=== PATIENT | female | born 1965 | race Caucasian/White ===

== ENCOUNTER 2017-04-23 08:28 | Day surgery (SDC) | payer BC ==
[~2017-04-23 08:28] MED LIST: ACETAMINOPHEN 1,000 MG/100 ML BTL IV ONE
[2017-04-23] MEDS ORDERED: BUPIVACAINE 0.75% W/EPI MPF 30ML VIAL IVP ONE (08:29)
[2017-04-23] MEDS ORDERED: FENTANYL PF 100MCG/2ML VIAL IV ONE (08:29)
[2017-04-23] MEDS ORDERED: SEVOFLURANE 250 ML INH ONE (08:29)
[2017-04-23] MEDS ORDERED: METHYLPREDNISOLONE 40MG/VIAL IM ONE (08:29)
[2017-04-23] MEDS ORDERED: PROPOFOL 10 MG/ML VIAL IV ONE (08:29)
[2017-04-23] MEDS ORDERED: ONDANSETRON HCL IV 4 MG/2 ML VIAL IVP ONE (08:29)
[2017-04-23] MEDS ORDERED: KETOROLAC 30 MG/ML VIAL IVP ONE (08:29)
[2017-04-23] MEDS ORDERED: HYDROCODONE/APAP 5/325MG TABLET PO ONE (08:29)
--- NOTE | 2017-04-23 20:27 | Operative Note ---
DATE: 04/23/2017 PREOPERATIVE DIAGNOSIS: INTERNAL DERANGEMENT OF THE RIGHT KNEE. POSTOPERATIVE DIAGNOSES: 1. GRADE 3 CHONDROMALACIA PATELLA. 2. GRADE 3 CHONDROMALACIA IN THE NOTCH. 3. FAT PAD IMPINGEMENT. 4. 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 5. SMALL TEAR OF THE ANTERIOR MEDIAL HORN OF THE LATERAL MENISCUS WITH MENISCAL CYST. 6. MODERATE SYNOVITIS. PROCEDURE: 1. RIGHT KNEE ARTHROSCOPY AND PARTIAL LATERAL MENISCECTOMY. 2. RIGHT KNEE ARTHROSCOPY WITH CHONDROPLASTY OF THE MEDIAL AND PATELLOFEMORAL COMPARTMENTS. 3. RIGHT KNEE ARTHROSCOPY WITH LIMITED SYNOVECTOMY. STAFF SURGEON: KRYSTAL HOWELL M.D. ANESTHESIA: GENERAL. PREPARATION: CHLORAPREP. INDIVIDUAL CONSIDERATIONS: NONE. PROCEDURE: The patient was taken to the Operating Room and placed supine on the operating table. She had a successful induction with general anesthetic. Her right lower extremity was prepped and draped in the usual fashion. The patient had superior lateral inflow cannula placed. The skin was infiltrated with 0.75% Marcaine with Epinephrine prior. A stab wound was made and the knee was inflated with normal saline through the superior lateral portal. An inferior medial and an inferior lateral portal were made in a similar fashion. The arthroscope was introduced through the inferior lateral portal up into the pouch. The patellofemoral compartment showed a fairly impressive impinging fat pad, synovitis in the pouch, and grade 3 changes primarily on the lateral facet of the patella. This was all smoothed with a shaver. There was an ulcer in the notch where this was articulating from the patella more lateral aspect about the size of a baljeet, which was smoothed off with a shaver. Synovectomy in the pouch was debrided also. Medially, she had peeling cartilage on the medial femoral condyle from approximately 10 to 90 degrees of flexion just lateral to the midline. This was smoothed off with a shaver but luckily not down to the bone. The meniscus and tibial plateau looked good. No significant synovitis in the gutters. In the notch, the cruciates were normal. In the lateral compartment structures, she had an obvious meniscal cyst with a flap tear involving the anterior medial horn of the lateral meniscus, which was all debrided out with a shaver. The remaining meniscus and articular cartilage looked good, although there were some soft changes in the tibial plateau. After irrigation, portals were closed with alden and 20 mL of 0.25% plain Marcaine along with 40 mg DepoMedrol were injected into the knee and a sterile Bulkee compressive dressing was applied. The patient tolerated the procedure well. Needle and sponge counts were correct. Estimated blood loss was minimal and she was taken back to Recovery in good condition. There were no complications. cc: Dr. Tommy Lambert JOB NUMBER: [id number] MTDD
== END 2017-04-23 12:20 | disposition home or self-care (01) ==
LOC: SUR 08:28
PROVIDERS: ATTEND Orthopaedic Surgery
DX: M22.41 Chondromalacia patellae, right knee (principal); M23.241 Derangement of anterior horn of lateral meniscus due to old tear or injury, right knee; M65.861 Other synovitis and tenosynovitis, right lower leg; E03.9 Hypothyroidism, unspecified; I10 Essential (primary) hypertension
CPT/HCPCS: 84132; 29881; 01400; J1885; J2405; J3010; J3490; J1030